=== PATIENT | male | born 2000 | race Caucasian/White ===

== ENCOUNTER 2022-09-07 17:11 | Emergency (ER) | payer BC, SELFPAY ==
[2022-09-07 17:12] VITALS: BP 140/88; PULSE 96; RESP 18; TEMP 35.9; O2SAT 100; BMI 28.8
--- NOTE | 2022-09-07 17:58 | EKG12_ITS ---
Test Reason : SOB Blood Pressure : / mmHG Vent. Rate : 103 BPM Atrial Rate : 103 BPM P-R Int : 128 ms QRS Dur : 090 ms QT Int : 306 ms P-R-T Axes : 045 055 040 degrees QTc Int : 400 ms Sinus tachycardia Otherwise normal ECG Confirmed by ELIUD OLIVEIRA, MING ([id number]), purchase request editor PEREZ GALLAGHER ([id number]) on 09/10/2022 12:32:25 P M Referred By: AGATHA/JESSICA Confirmed By:PONCHO KLINE MD
--- NOTE | 2022-09-07 17:59 | RAD_ITS ---
EXAM: XR CHEST, 1 VIEW CLINICAL INDICATION: chest pain TECHNIQUE: Frontal view of the chest. This report was created using [employer] report generation technology. COMPARISON: None. FINDINGS: LUNGS AND PLEURAL SPACES: Unremarkable. No consolidation or edema. No pneumothorax. No effusion. HEART: Unremarkable. Cardiac silhouette not enlarged. MEDIASTINUM: Central airways and mediastinal contour are unremarkable. BONES/JOINTS: Unremarkable. SOFT TISSUES: Unremarkable. RAD/Chest 1 View (Portable) IMPRESSION: No radiographic evidence of acute cardiopulmonary disease. Electronically Signed: Seth Nichole MD at 18:34 EDT ,
[2022-09-07 18:17] LABS: Absolute Lymphocyte Count 2.75 X10^3/uL (0.83-4.51); Absolute Neutrophil Count 3.2 X10^3/uL (2.0-7.7); Basophil# 0.03 X10^3/uL; Basophil% 0.5 % (0-1); Eosinophil# 0.06 X10^3/uL; Eosinophils% 0.9 % (0-5); Hematocrit 47.4 % (40-54); Hemoglobin 15.9 g/dL (13.0-16.5); Lymphocyte # 2.75 X10^3/ul (0.83-4.51); Lymphocyte % 42.4 % (19-41); Mean Corp Hgb Conc 33.5 g/dL (32-36); Mean Corpuscular Hgb 28.3 pg (27.0-32.0); Mean Corpuscular Volume 84.5 fL (80-94); Mean Platelet Vol. 9.5 fl (6.2-12.0); Monocyte# 0.49 X10^3/uL; Monocyte% 7.6 % (0-10); NRBC Flagged by Analyzer 0 % (0-5); Neutrophil # 3.15 X10^3/uL (2.7-7.7); Neutrophil % 48.4 % (47-70); Platelet Count 369 K/mm3 (150-450); RBC Distribution Width CV 12.2 % (11.6-14.6); RBC Distribution Width SD 37.2 fl (35.1-43.9); Red Blood Count 5.61 M/mm3 (4.6-6.2); White Blood Count 6.5 K/mm3 (4.4-11.0)
[2022-09-07 18:23] VITALS: BP 122/101; PULSE 93; RESP 18
[2022-09-07 18:32] LABS: Anion Gap 6 (5-15); BUN 17 mg/dL (7-18); BUN/Creat Ratio 16.3 RATIO (10-20); Calcium,Total 9.3 mg/dL (8.5-10.1); Chloride 108 mmol/L (98-107); Creatinine, Serum 1.04 mg/dL (0.70-1.30); EST Glomerular Filtration Rate 96 mL/min (>60); Est Glom Filt Rate - Afr Amer 117 mL/min (>60); Glucose 104 mg/dL (74-106); Potassium 3.8 mmol/L (3.5-5.1); Sodium Level 140 mmol/L (136-145); Troponin-I HS < 3 pg/mL (3.0-78.0)
--- NOTE | 2022-09-07 19:47 | ED.VIS.CHEST ---
HPI History of Present Illness Chief Complaint: Chest Pain Narrative Narrative: 22-year-old male presenting with left-sided chest pain. He states it feels like a spasm. He states he had it yesterday and it resolved. Today he has been having on and off all day. He is accompanied by his father. He states that he has been moving into a new place. Has been very active this week and working in the garage. He feels as if it is likely musculoskeletal as the patient has been very physical. Patient does not have any cardiac history. No lightheadedness, dizziness, nausea, vomiting. He is not short of breath. Patient has of DVT/PE risk factors. He has no other medical problems. PFSH PFSH Allergy/AdvReac Type Severity Reaction Status Date / Time No Known Allergies Allergy Verified 09/07/22 17:13 Social History Smoking Status: Never smoker ROS ROS ED Constitutional Constitutional ED: Denies chills, fever(s) or sweats Eyes Eyes: Denies blurry vision or change in vision ENT ENT ED: Denies ear pain or sore throat Cardiovascular Cardiovascular: Reports chest pain; Denies palpitations or racing heartbeat Respiratory/Chest Respiratory/Chest: Denies cough, dyspnea or sputum Gastrointestinal Gastrointestinal: Denies abdominal pain, constipation, diarrhea, nausea or vomiting Genitourinary Genitourinary ED: Denies dysuria, hematuria or urinary frequency Musculoskeletal Musculoskeletal: Denies arthralgias, myalgias or neck pain Integumentary Denies abscess, Abrasions or rash Neurologic Neurologic: Denies headache(s), paresthesias or weakness Psychiatric Psychiatric: Denies anxiety, depression, suicidal ideation or suicidal thoughts Endocrine Endocrinology: Denies polydipsia or polyuria EXAM Physical Exam Const Vital Signs: 09/07/22 17:12 09/07/22 18:23 09/07/22 18:23 Temperature 96.7 F L Temperature Source Temporal Pulse Rate 96 93 Respiratory Rate 18 18 Respiratory Effort Blood Pressure 140/88 H 122/101 H Blood Pressure Mean 105 108 Pulse Ox 100 Oxygen Delivery Method Room Air Room Air Room Air 09/07/22 18:23 Temperature Temperature Source Pulse Rate Respiratory Rate Respiratory Effort Normal Non-Labored Blood Pressure Blood Pressure Mean Pulse Ox Oxygen Delivery Method Positive well nourished and well developed General Appearance ED: well developed and NAD HEENT normocephalic and atraumatic Eyes PERRL and EOMs intact bilaterally Chest Wall inspection of chest normal and palpation of chest normal Resp normal respiratory effort and clear to auscultation bilaterally Cardio regular rate and regular rhythm Extremity normal to inspection Skin no rashes or lesions noted Heart Score History: Slightly/Non-Suspicious ECG: Normal Age: </= 45 years Risk Factors: No Risk Factors Troponin: </= Normal Limit Score: 0 MDM MDM MDM Narrative Medical decision making narrative: 22-year-old male presenting with chest pain. HEART score of 0. Differential includes but is not limited to ACS, PE, pneumonia, pneumothorax, muscle strain, costochondritis, muscle spasm. EKG to assess for dysrhythmia, ischemia normal sinus rhythm with a ventricular rate of 102 bpm outside of ischemic change on my interpretation. Chest x-ray on my interpretation shows no acute process. Radiologist are present and agrees. CBC and BMP are unremarkable. High-sensitivity troponin less than 3. Patient has no DVT/PE risk and I have low suspicion for PE. Discussed at length with the patient and his family. I believe this is likely musculoskeletal. I feel he is stable to discharge. Do not believe he needs a delta troponin. Patient discharged in stable condition. Impression: 1. Chest pain noncardiac 2. Chest wall strain Lab Data Labs: Laboratory Results - last 24 hr 09/07/22 09/07/22 18:09 18:09 WBC 6.5 RBC 5.61 Hgb 15.9 Hct 47.4 MCV 84.5 MCH 28.3 MCHC 33.5 RDW Std Deviation 37.2 RDW Coeff of Sung 12.2 Plt Count 369 MPV 9.5 Immature Gran % (Auto) 0.200 Neut % (Auto) 48.4 Lymph % (Auto) 42.4 H Beltrami % (Auto) 7.6 Eos % (Auto) 0.9 Baso % (Auto) 0.5 Absolute Neuts (auto) 3.2 Absolute Lymphs (auto) 2.75 Nucleated RBC % 0 Sodium 140 Potassium 3.8 Chloride 108 H Carbon Dioxide 26.0 Anion Gap 6 BUN 17 Creatinine 1.04 Estim Creat Clear Calc 113.30 Est GFR (MDRD) Af Amer 117 Est GFR (MDRD) Non-Af 96 BUN/Creatinine Ratio 16.3 Glucose 104 Calcium 9.3 Troponin I High Sens < 3 L Radiography Diagnostic Testing: Clinical Impression(s) from Imaging Studies Chest X-Ray 09/07/22 17:59 IMPRESSION: No radiographic evidence of acute cardiopulmonary disease. Electronically Signed: Seth Nichole MD at 18:34 EDT Reading Location ID and State: [facility] / [place] , Service support , Discharge Plan Triage Chief Complaint: Chest Pain ED Provider: Osmel Velásquez Dx/Rx/DC Orders Instructions: ED Chest Pain, Noncardiac Primary Care Provider: Abena Montana Referrals: Abena Montana MD [Primary Care Provider] - Disposition Disposition: Home, Self Care
[2022-09-07 19:52] VITALS: BP 121/88; PULSE 70; RESP 18; O2SAT 100
== END 2022-09-07 19:53 | disposition home or self-care (01) ==
PROVIDERS: Emergency Provider Student in an Organized Health Care Education/Training Program; PCP Pediatrics; Visit Provider Student in an Organized Health Care Education/Training Program
DX: R07.89 Other chest pain (principal); S29.011A Strain of muscle and tendon of front wall of thorax, initial encounter; X58.XXXA Exposure to other specified factors, initial encounter
CPT/HCPCS: 71045; 80048; 84484; 85025; 93005; 99284; A4216